=== PATIENT | female | born 1975 | race Caucasian/White ===

== ENCOUNTER 2018-01-21 20:29 | Emergency (ER) | payer BC ==
[~2018-01-21] VITALS: Ht 165.1 cm; Wt 93.0 kg
[~2018-01-21 20:29] MED LIST: ESTR1PAT10 TD; GABA-586 PO; LEVO50TA5 PO; PANT40TA5 PO; VENTOLIN HFA18 GM IH
[2018-01-21] MEDS ORDERED: FAMOTIDINE 20 MG/2 ML VIAL IVP ONE (22:00)
[2018-01-21] MEDS ORDERED: ONDANSETRON PF 4 MG/2 ML VIAL. IV ONE (22:00)
[2018-01-21] MEDS ORDERED: IV NORMAL SALINE 1000ML BAG 1,000 ML IV ONE (22:00)
[2018-01-21] MEDS ORDERED: KETOROLAC 15 MG/ML VIAL. IV ONE (22:00)
[2018-01-21 22:41] LABS: BASO # 0.1 x10^3/uL (0.0-0.2); BASO % 1 % (0-3); EOS # 0.2 x10^3/uL (0.0-0.7); EOS % 2 % (0-3); HEMATOCRIT 39.5 % (36.0-47.0); HEMOGLOBIN 13.7 g/dL (12.0-15.5); LYMPH # 2.7 x10^3/uL (1.0-4.8); LYMPH % 26 % (24-48); MEAN CORPUSCULAR HEMOGLOBIN 31 pg (25-35); MEAN CORPUSCULAR HGB CONC 35 g/dL (31-37); MEAN CORPUSCULAR VOLUME 88 fL (79-100); MONO # 0.8 x10^3/uL (0.0-1.1); MONO % 8 % (0-9); NEUT # 6.7 x10^3uL (1.8-7.7); NEUT % 64 % (31-73); PLATELET COUNT 238 x10^3/uL (140-400); RED CELL DISTRIBUTION WIDTH 13.5 % (11.5-14.5); WHITE BLOOD COUNT 10.5 x10^3/uL (4.0-11.0)
[2018-01-21 22:42] LABS: BILIRUBIN,URINE NEGATIVE (NEG); CLARITY,URINE CLEAR; COLOR,URINE YELLOW; NITRITE,URINE NEGATIVE (NEG); PH,URINE 6.5; PROTEIN,URINE NEGATIVE (NEG-TRACE)
[2018-01-21 22:48] LABS: BACTERIA,URINE FEW /HPF (0-FEW); RBC,URINE 0 /HPF (0-2); SQUAMOUS EPITHELIAL CELL,UR FEW /LPF; WBC,URINE OCC /HPF (0-4)
[2018-01-21] MEDS ORDERED: IOHEXOL 300 MG/ML 100ML VIAL. IV ONE (23:45)
[2018-01-21] MEDS ORDERED: CONTRAST GIVEN. MC PRN (23:45)
[2018-01-21 23:57] LABS: CALCIUM 8.2 mg/dL (8.5-10.1); CREATININE 0.6 mg/dL (0.6-1.0); GFR 108.6; POTASSIUM 3.6 mmol/L (3.5-5.1)
[2018-01-22 00:01] LABS: ALBUMIN 3.3 g/dL (3.4-5.0); ALBUMIN/GLOBULIN RATIO 0.9 (1.0-1.7); MAGNESIUM 2.1 mg/dL (1.8-2.4); TOTAL BILIRUBIN 0.4 mg/dL (0.2-1.0); TOTAL PROTEIN 7.1 g/dL (6.4-8.2)
--- NOTE | 2018-01-22 01:09 | EKG ---
[facility] [address] [place] [address] Test Date: 2018-01-21 Test Time: 22:18:30 Pat Name: RASHAD JENNINGS Department: Room: Gender: F Line Department Supervisor: : 1975 Requested By: RODNEY MOHR Order Number: [id number] Reading MD: Binh Bales MD Measurements Intervals [place] Rate: 79 P: 56 VT: 166 QRS: -7 QRSD: 88 T: 11 QT: 418 QTc: 480 Interpretive Statements SINUS RHYTHM Electronically Signed On 01-24-2018 12:18:42 CDT by Binh Bales MD
--- NOTE | 2018-01-22 01:29 | RAD ---
CT abdomen and pelvis with contrast: Reason for examination: Left upper quadrant pain. Comparison is made to previous study dated 06/26/2013. Helical images were obtained through the abdomen and pelvis with intravenous administration of 75 cc Omnipaque 300. Reconstruction was performed in sagittal and coronal planes. Exposure: One or more of the following individualized dose reduction techniques were utilized for this examination: 1. Automated exposure control 2. Adjustment of the mA and/or kV according to patient size 3. Use of iterative reconstruction technique. The lung bases are clear. The heart size is normal with no pericardial effusion. No abnormality seen at the liver, spleen, adrenal glands or pancreas. The gallbladder surgically absent. The abdominal aorta and inferior vena cava show no abnormalities. The kidneys show no renal masses, renal calculi, hydronephrosis or evidence of obstructive uropathy. The stomach is not abnormally distended. The small intestinal tract shows no abnormally dilated loops of small intestine or thickened intestinal wall. There is no bowel obstruction. There is no evidence of diverticulosis or diverticulitis. The appendix is not identified and may be surgically absent. Recommend clinical correlation. No abnormality seen at the bladder or vaginal cuff. No free fluid or free air seen in the abdomen or pelvis. IMPRESSION: No acute abnormality seen in the abdomen or pelvis. Electronically signed by: Carleen Brar MD (01/22/2018 1:26 AM) [facility]
[2018-01-22] MEDS ORDERED: fentaNYL PF VIAL 100 MCG/2 ML VIAL IV ONE (01:30)
[2018-01-22] MEDS ORDERED: TRAM50TA PO (01:54)
[2018-01-22] MEDS ORDERED: HYOS0.1265 SL (01:54)
[2018-01-22] MEDS ORDERED: ONDA4TAB10 PO (01:54)
--- NOTE | 2018-01-22 01:54 | PHYS DOC ---
Past Medical History Past Medical History: Depression, Fibromyalgia, Hypothyroid, IBS Past Surgical History: Cholecystectomy, Hysterectomy, Tonsillectomy, Other Additional Past Surgical Histo: 3 Nasal surgeries Alcohol Use: Rarely Drug Use: None Adult General Chief Complaint Chief Complaint: ABDOMINAL PAIN HPI HPI Patient is a 42 year old [f__sex] who presents with [] Review of Systems Review of Systems Constitutional: Denies fever or chills [] Eyes: Denies change in visual acuity, redness, or eye pain [] HENT: Denies nasal congestion or sore throat [] Respiratory: Denies cough or shortness of breath [] Cardiovascular: No additional information not addressed in HPI [] GI: Denies abdominal pain, nausea, vomiting, bloody stools or diarrhea [] : Denies dysuria or hematuria [] Musculoskeletal: Denies back pain or joint pain [] Integument: Denies rash or skin lesions [] Neurologic: Denies headache, focal weakness or sensory changes [] Endocrine: Denies polyuria or polydipsia [] All other systems were reviewed and found to be within normal limits, except as documented in this note. Current Medications Current Medications Current Medications Medications (Trade) Dose Ordered Sig/Daniel Start Time Stop Time Status Last Admin Dose Admin Famotidine (Pepcid Vial) 20 mg 1X ONCE 01/21/18 22:00 01/21/18 22:01 DC 01/21/18 23:05 20 MG Fentanyl Citrate (Fentanyl 2ml Vial) 50 mcg 1X ONCE 01/22/18 01:30 01/22/18 01:31 DC 01/22/18 01:22 50 MCG Info (CONTRAST GIVEN -- Rx MONITORING) 1 each PRN DAILY PRN 01/21/18 23:45 01/22/18 02:12 DC Iohexol (Omnipaque 300 Mg/ml) 75 ml 1X ONCE 01/21/18 23:45 01/21/18 23:46 DC 01/22/18 00:27 75 ML Ketorolac Tromethamine (Toradol 15mg Vial) 15 mg 1X ONCE 01/21/18 22:00 01/21/18 22:01 DC 01/21/18 23:04 15 MG Ondansetron HCl (Zofran) 4 mg 1X ONCE 01/21/18 22:00 01/21/18 22:01 DC 10/7/18 23:02 4 MG Sodium Chloride 1,000 ml @ 1,000 mls/hr 1X ONCE 01/21/18 22:00 01/21/18 22:59 DC 01/21/18 23:02 1,000 MLS/HR Allergies Allergies Allergies Coded Allergies Type Severity Reaction Last Updated Verified codeine Allergy Unknown 06/26/13 Yes Uncoded Allergies Type Severity Reaction Last Updated Verified DARVOCET Allergy Unknown 06/26/13 Physical Exam Physical Exam Constitutional: Well developed, well nourished, no acute distress, non-toxic appearance. [] HENT: Normocephalic, atraumatic, bilateral external ears normal, oropharynx moist, no oral exudates, nose normal. [] Eyes: PERRLA, EOMI, conjunctiva normal, no discharge. [] Neck: Normal range of motion, no tenderness, supple, no stridor. [] Cardiovascular:Heart rate regular rhythm, no murmur [] Lungs & Thorax: Bilateral breath sounds clear to auscultation [] Abdomen: Bowel sounds normal, soft, no tenderness, no masses, no pulsatile masses. [] Skin: Warm, dry, no erythema, no rash. [] Back: No tenderness, no CVA tenderness. [] Extremities: No tenderness, no cyanosis, no clubbing, ROM intact, no edema. [] Neurologic: Alert and oriented X 3, normal motor function, normal sensory function, no focal deficits noted. [] Psychologic: Affect normal, judgement normal, mood normal. [] Current Patient Data Vital Signs Vital Signs Date Time Temp Pulse Resp B/P (MAP) Pulse Ox O2 Delivery O2 Flow Rate FiO2 01/22/18 02:11 87 18 118/73 (88) 99 Room Air 01/21/18 21:10 98.5 98.5 Lab Values Laboratory Tests Test 01/21/18 22:30 01/21/18 22:35 01/21/18 23:30 White Blood Count 10.5 x10^3/uL (4.0-11.0) Red Blood Count 4.50 x10^6/uL (3.50-5.40) Hemoglobin 13.7 g/dL (12.0-15.5) Hematocrit 39.5 % (36.0-47.0) Mean Corpuscular Volume 88 fL (79-100) Mean Corpuscular Hemoglobin 31 pg (25-35) Mean Corpuscular Hemoglobin Concent 35 g/dL (31-37) Red Cell Distribution Width 13.5 % (11.5-14.5) Platelet Count 238 x10^3/uL (140-400) Neutrophils (%) (Auto) 64 % (31-73) Lymphocytes (%) (Auto) 26 % (24-48) Monocytes (%) (Auto) 8 % (0-9) Eosinophils (%) (Auto) 2 % (0-3) Basophils (%) (Auto) 1 % (0-3) Neutrophils # (Auto) 6.7 x10^3uL (1.8-7.7) Lymphocytes # (Auto) 2.7 x10^3/uL (1.0-4.8) Monocytes # (Auto) 0.8 x10^3/uL (0.0-1.1) Eosinophils # (Auto) 0.2 x10^3/uL (0.0-0.7) Basophils # (Auto) 0.1 x10^3/uL (0.0-0.2) Troponin I Quantitative < 0.017 ng/mL (0.000-0.055) Urine Collection Type Unknown Urine Color Yellow Urine Clarity Clear Urine pH 6.5 Urine Specific [place] 1.025 Urine Protein Negative mg/dL (NEG-TRACE) Urine Glucose (UA) Negative mg/dL (NEG) Urine Ketones (Stick) Negative mg/dL (NEG) Urine Blood Negative (NEG) Urine Nitrite Negative (NEG) Urine Bilirubin Negative (NEG) Urine Urobilinogen Dipstick 1.0 mg/dL (0.2 mg/dL) Urine Leukocyte Esterase Negative (NEG) Urine RBC 0 /HPF (0-2) Urine WBC Occ /HPF (0-4) Urine Squamous Epithelial Cells Few /LPF Urine Bacteria Few /HPF (0-FEW) Urine Mucus Mod /LPF Sodium Level 141 mmol/L (136-145) Potassium Level 3.6 mmol/L (3.5-5.1) Chloride Level 106 mmol/L (98-107) Carbon Dioxide Level 26 mmol/L (21-32) Anion Gap 9 (6-14) Blood Urea Nitrogen 12 mg/dL (7-20) Creatinine 0.6 mg/dL (0.6-1.0) Estimated GFR (Cockcroft-Gault) 108.6 BUN/Creatinine Ratio 20 (6-20) Glucose Level 94 mg/dL (70-99) Calcium Level 8.2 mg/dL (8.5-10.1) L Magnesium Level 2.1 mg/dL (1.8-2.4) Total Bilirubin 0.4 mg/dL (0.2-1.0) Aspartate Amino Transferase (AST) 14 U/L (15-37) L Alanine Aminotransferase (ALT) 16 U/L (14-59) Alkaline Phosphatase 112 U/L (46-116) Total Protein 7.1 g/dL (6.4-8.2) Albumin 3.3 g/dL (3.4-5.0) L Albumin/Globulin Ratio 0.9 (1.0-1.7) L Lipase 138 U/L (73-393) Laboratory Tests 01/21/18 22:30 Laboratory Tests 01/21/18 23:30 EKG EKG @2218: NSR at 79bpm, NO ST elevation, Nonspecific t wave inversion III. Radiology/Procedures Radiology/Procedures PROCEDURE: CT ABD PELV W/ IV CONTRST ONLY CT abdomen and pelvis with contrast: Reason for examination: Left upper quadrant pain. Comparison is made to previous study dated 06/26/2013. Helical images were obtained through the abdomen and pelvis with intravenous administration of 75 cc Omnipaque 300. Reconstruction was performed in sagittal and coronal planes. Exposure: One or more of the following individualized dose reduction techniques were utilized for this examination: 1. Automated exposure control 2. Adjustment of the mA and/or kV according to patient size 3. Use of iterative reconstruction technique. The lung bases are clear. The heart size is normal with no pericardial effusion. No abnormality seen at the liver, spleen, adrenal glands or pancreas. The gallbladder surgically absent. The abdominal aorta and inferior vena cava show no abnormalities. The kidneys show no renal masses, renal calculi, hydronephrosis or evidence of obstructive uropathy. The stomach is not abnormally distended. The small intestinal tract shows no abnormally dilated loops of small intestine or thickened intestinal wall. There is no bowel obstruction. There is no evidence of diverticulosis or diverticulitis. The appendix is not identified and may be surgically absent. Recommend clinical correlation. No abnormality seen at the bladder or vaginal cuff. No free fluid or free air seen in the abdomen or pelvis. IMPRESSION: No acute abnormality seen in the abdomen or pelvis. Course & Med Decision Making Course & Med Decision Making Pertinent Labs and Imaging studies reviewed. (See chart for details) [] Horacio Disclaimer Horacio Disclaimer This electronic medical record was generated, in whole or in part, using a voice recognition dictation system. Departure Departure Impression: Primary Impression: Abdominal pain Disposition: HOME, SELF-CARE Condition: STABLE Referrals: YAMILA MICHAEL MD (PCP) LARISA PEREZ MD Patient Instructions: Abdominal Pain (Nonspecific) Scripts Tramadol Hcl (TRAMADOL HCL) 50 Mg Tablet 50 MG PO Q6HRS PRN for PAIN, #14 TAB Take each tablet with one (1) regular strength Tylenol 325mg. Prov: RODNEY MOHR DO 01/22/18 Hyoscyamine Sulfate (LEVSIN-SL) 0.125 Mg Tab.subl 1 TAB SL PRN Q4HRS, #20 TAB 0 Refills Prov: RODNEY MOHR DO 01/22/18 Ondansetron (ZOFRAN ODT) 4 Mg Tab.rapdis 4 MG PO BID PRN for NAUSEA/VOMITING, #14 TAB Prov: RODNEY MOHR DO 01/22/18 Problem Qualifiers Primary Impression: Abdominal pain Abdominal location: left upper quadrant Qualified Codes: R10.12 - Left upper quadrant pain RODNEY MOHR DO Jan 22, 2018 01:54
[2018-01-22 02:11] VITALS: BP 118/73
== END 2018-01-22 02:12 | disposition home or self-care (01) ==
LOC: ER 20:29
DX: R10.12 Left upper quadrant pain (principal); F32.9 Major depressive disorder, single episode, unspecified; E03.9 Hypothyroidism, unspecified; Z90.49 Acquired absence of other specified parts of digestive tract; Z90.710 Acquired absence of both cervix and uterus; Z90.89 Acquired absence of other organs; Z88.5 Allergy status to narcotic agent
CPT/HCPCS: 36415; 74177; 80053; 81001; 83690; 83735; 84484; 85025; 93005; 96374; 96375; 99285; J1885; J2405; J3010; J7030; Q9967; S0028

== ENCOUNTER → 2020-03-10 | Outpatient (CLI) | payer BC ==
[~2020-03-10] MED LIST changes: -GABA-586 PO; +GABA300C18 PO; +HYOS0.1265 SL; +ONDA4TAB10 PO; -PANT40TA5 PO; +PANT40TA77 PO; +TRAM50TA PO
--- NOTE | 2020-03-10 15:45 | KCIC ---
Bilateral digital screening mammograms Reason for examination: Routine screening. Comparison is made to previous study dated July 01, 2015 Routine CC and MLO digital views obtained. Interpretation was made with the benefit of CAD. The skin and nipples show no abnormalities. No abnormal axillary lymph nodes are seen. The breast parenchyma is heterogeneously dense. (Breast density: Category C.) There are no spiculated masses, suspicious calcifications or architectural distortion. Breast density has decreased since the prior study. Within the right slightly outer breast mid depth 5 cm from the nipple on both the CC and MLO views there is a nodular asymmetry which is new. Within the left breast only apparent on the MLO view 4 cm from the nipple is nodular asymmetry which is new. This could be related to involutional changes with decreasing heterogeneous breast density since the prior exam however underlying masses are not excluded. Impression: Nodular asymmetries of both breasts new from the prior study. Further evaluation with bilateral breast ultrasound is advised. ?Your patient's mammogram demonstrates that she has dense breast tissue (breast density category C or D), which could hide abnormalities, and if she has other risk factors for breast cancer that have been identified, she might benefit from supplemental screening tests that may be suggested by you as her ordering physician. Dense breast tissue, in and of itself, is a relatively common condition. Therefore, this information is not provided to cause undue concern, but rather to raise your awareness and to promote discussion with your patient regarding the presence of other risk factors, in addition to dense breast tissue. Your patient's mammography results will be sent to her. BI-RAD Category 0: Incomplete examination. "Our facility is accredited by the [employer] Mammography Program." This patient's information has been entered into a reminder system for the patient to be notified with the results of her examination and a target date for the next mammogram. Electronically signed by: Dorian Dyson MD (03/10/2020 3:42 PM) [id number]
== END ==
LOC: KCIC MAMMO 14:52
PROVIDERS: ATTEND Internal Medicine
DX: Z12.31 Encounter for screening mammogram for malignant neoplasm of breast (principal); N63.20 Unspecified lump in the left breast, unspecified quadrant; N63.10 Unspecified lump in the right breast, unspecified quadrant
CPT/HCPCS: 77067